=== PATIENT | female | born 1990 | race Two or more races ===

== ENCOUNTER 2025-02-18 17:09 | Emergency (ER) | payer OTHER ==
[~2025-02-18] VITALS: Ht 152.4 cm; Wt 55.0 kg
[2025-02-18] MEDS: LIDOCAINE W/ EPINEPHRINE 1% 20ML VIAL ID ONE (18:44)
[2025-02-18] MEDS: OXYCODONE W/ ACETAMINOPHEN 5/325MG TABLET PO ONE ×2 (18:45→20:29)
--- NOTE | 2025-02-18 18:46 | ED.PDOC ---
HPI Comments 34-YEAR-OLD FEMALE HERE FOR MULTIPLE LAC TO RIGHT SIDE OF FACE S/P DOG BITE BLEEDING CONTROLLED AT THIS TIME PATIENT STATES WAS NOT STRAIGHT DOG SHE NOTES THE DOG LICKED HER FACE 1ST THEN BITTER IN THE RIGHT-SIDED CHEEK. PAIN 8/10 ON PAIN SCALE PRESSURE THROBBING TYPE PAIN. REPORTS NO FACIAL DROOP OR NUMBNESS. PATIENT REQUESTING TETANUS STATES SHE IS IN THE UNKNOWN WHEN SHE RECEIVED HER TETANUS. Chief Complaint: Laceration Time Seen by MD: 18:10 Reviewed Notes: Nurses Notes, Medications, Allergies Allergies: Coded Allergies: Nitrofurantoin (Verified Allergy, Severe, 02/18/25) Home Meds Discontinued Scripts Ibuprofen (Ibuprofen) 800 Mg Tab, 800 MG PO Q8HP PRN for 7 Days, #21 TAB Prov:SHAYE VELASCO RADIOLOGY SERVICES MANAGER 02/18/25 Amoxicillin & Pot Clavulanate (AUGMENTIN TABLET) 875 Mg Tb, 875 MG PO BID for 7 Days, #14 TAB Prov:SHAYE VELASCO RADIOLOGY SERVICES MANAGER 02/18/25 Information Source: Patient Mode of Arrival: Ambulatory Complexity: Complex Laceration Length (cm): 5 Skin Type: Linear, Jagged, Irregular Tendon Injury: 0% Past Medical History PAST MEDICAL HISTORY: Denies Surgical History: Denies all surgeries INSURANCE AGENT History: No Pertinent INSURANCE AGENT History Family History Family History: Reviewed,noncontributory to illness Social History Smoker: Non-Smoker Alcohol: Denies ETOH Use Drugs: Denies Drug Use All Other Systems: Reviewed and Negative (SEE HPI) Physical Exam General Appearance: No Apparent Distress, Normal HEENT: Pharynx Normal Neck: Full Range of Motion, Non-Tender Respiratory: Lungs Clear, No Respiratory Distress, Normal Breath Sounds Cardiovascular: No Murmur, Normal Peripheral Pulses, Regular Rate/Rhythm Breast Exam: Deferred Gastrointestinal: Non Tender, Soft Genitalia: Deferred Pelvic: Deferred Rectal: Deferred Extremities: Normal capillary refill, Normal range of motion Musculoskeletal : Apperance: Normal Neurologic: Alert, No Motor Deficits, Normal Affect, Normal Mood, No Sensory Deficits Cerebellar Function: Normal Reflexes: NOT DONE Skin: Dry, Lacerations (1# 1 IN FULL-THICKNESS LINEAR LACERATION RIGHT SIDE FOREHEAD RIGHT LATERAL TO EYEBROW NO OBVIOUS FOREIGN BODY BLEEDING CONTROLLED 2# 1.5 IN JAGGED LACERATION FULL-THICKNESS NO OBVIOUS FOREIGN BODY BLEEDING CONTR OLLED. 3# 1/2 INCH CIRCULAR LACERATION WITH SKIN TEAR BLEEDING CONTROLLED NO OBVIOUS FOREIGN BODY), Normal Color, Warm Lymphatic: No Adenopathy Was a procedure done? Was a procedure done?: Yes Sedation Sedation?: No Laceration Repair #1: Location RIGHT SIDE FOREHEAD RIGHT LATERAL TO EYEBROW Length 1 INCH Anesthetic: Lidocaine, With epi Laceration Repair Prep: Saline, by Irrigation Laceration Repair Wound Comple: epidermis/dermis repair Laceration Repair: Number of sutures (7), Simple, Nothing Informed consent obtained: Yes Risks, benefits, and alternati: Yes Laceration Repair #2: Location RIGHT TENRIISM INTO CHEEK Length 2 INCHS Anesthetic: Lidocaine, With epi Laceration Repair Prep: Saline, by Irrigation Laceration Repair Wound Comple: layered repair Laceration Repair: Number of sutures (15 AND 2 INTERNAL ABSORBABLE), Simple, Nothing Informed consent obtained: Yes Risks, benefits, and alternati: Yes Laceration Repair #3: Location RIGHT CHEEK Length 1/2 INCH WITH SKIN TEAR Anesthetic: Lidocaine, With epi Laceration Repair Prep: Saline, by Irrigation Laceration Repair Wound Comple: epidermis/dermis repair Laceration Repair: Number of sutures (9) Informed consent obtained: Yes Risks, benefits, and alternati: Yes Notes PATIENT TOLERATED WELL WITH MINIMAL BLOOD LOSS Differential diagnosis Generic Laceration: Retained Foriegn Body, Neurovascular Injury, Tendon Injury, Laceration, Avulsion X-Ray, Labs, Meds, VS Vital Signs Date Time Temp Pulse Resp B/P (MAP) Pulse Ox O2 Delivery O2 Flow Rate FiO2 02/18/25 20:56 98.2 99 19 121/83 (96) 99 98.2 02/18/25 17:11 97.0 121 15 118/89 (99) 98 97.0 02/18/25 17:11 121 15 98 Room Air 02/18/25 17:11 97.0 121 15 118/89 98 97.0 X-Ray, Labs, Meds, VS Comment See procedure note. Pain medication: Percocet 5 mg x 2 with relief Medications: Rocephin 1 g IM, and Tdap Patient requesting discharge at this time. Advised patient to closely monitor for infection due to being a dog bite required wounds to be sutured due to depth, bleeding, and location. Script prophylactic trial of Augmentin and ibuprofen. Advised to take medications as prescribed side effects discussed. Advised close follow up in two days with PCP, urgent care or back here in the ER. ER return precautions given for uncontrolled bleeding and signs and symptoms of infection patient indicates understanding and agrees with discharge plan of care. Time of 1ST Reevaluation: 18:25 Reevaluation 1ST: Unchanged Time of 2ND Reevaluation: 20:40 Reevaluation 2ND: Improved Patient Education/Counseling: Diagnosis, Treatment, Prognosis, Need For Follow Up Family Education/Counseling: Diagnosis, Treatment, Prognosis, Need For Follow Up Departure 1 Departure Time of Disposition: 20:43 Impression: Primary Impression: Dog bite of cheek Qualified Codes: S01.451A - Open bite of right cheek and temporomandibular area, initial encounter; W54.0XXA - Bitten by dog, initial encounter Additional Impression: Facial laceration Qualified Codes: S01.81XA - Laceration without foreign body of other part of head, initial encounter Disposition: 01 HOME / SELF CARE / HOMELESS Condition: Stable Discharged With: Spouse Critical Care Note Critical Care Time?: No Stability Stability form required: SHAYE Rivera Feb 18, 2025 18:46
[2025-02-18] MEDS: IBUPROFEN 600 MG TAB PO ONE (20:29)
[2025-02-18] MEDS: cefTRIAXone SOD 1,000 MG VL IM ONE (20:30)
[2025-02-18] MEDS: TETANUS-DIPTH-ACEL PERTUSSIS 0.5ML SYR Tdap IM ONE (20:31)
[2025-02-18] MEDS ORDERED: AUG875T PO (20:45)
[2025-02-18] MEDS ORDERED: IBUP-1456 PO (20:51)
[2025-02-18 20:56] VITALS: BP 121/83; PULSE 99; RESP 19; TEMP 98.2; O2SAT 99
== END 2025-02-18 20:57 | disposition home or self-care (01) ==
LOC: ER 17:09
DX: S01.81XA Laceration without foreign body of other part of head, initial encounter (principal); S01.451A Open bite of right cheek and temporomandibular area, initial encounter; Z79.899 Other long term (current) drug therapy; W54.0XXA Bitten by dog, initial encounter; Y93.89 Activity, other specified; Y92.89 Other specified places as the place of occurrence of the external cause; Y99.8 Other external cause status; Z88.1 Allergy status to other antibiotic agents
CPT/HCPCS: 12015; 90471; 90715; 96372; 99284; J0696

== ENCOUNTER 2025-03-15 18:28 | Emergency (ER) | payer OTHER ==
[~2025-03-15] VITALS: Ht 154.9 cm; Wt 55.0 kg
[2025-03-15 18:29] VITALS: BP 123/86; PULSE 93; RESP 18; TEMP 99.1; O2SAT 97
--- NOTE | 2025-03-15 18:49 | ED.PDOC ---
History of Present Illness(SKN HPI Comments 35-year-old female who came to ER for suture removal. Suffered a dog bite on her right cheek last February 18. 2 inch laceration on her right cheek, properly sutured. Patient coming in for suture removal Chief Complaint: Suture Removal Time Seen by MD: 18:48 History of Present Illness: Nurses Notes, Medications, Allergies Allergies: Coded Allergies: Nitrofurantoin (Verified Allergy, Severe, 02/18/25) Information Source: Patient Mode of Arrival: Ambulatory Severity: Moderate Timing: Weeks Duration: Since onset Location: Face (Right cheek) Mechanism: Dog Past Medical History PAST MEDICAL HISTORY: Denies Surgical History: Denies all surgeries POSTMASTER History: No Pertinent POSTMASTER History Family History Family History: Reviewed,noncontributory to illness Social History Smoker: Non-Smoker Alcohol: Denies ETOH Use Drugs: Denies Drug Use Lives In: Home Constitutional: denies: chills, diaphoresis, fatigue, fever, malaise, sweats, weakness, others EENTM: denies: blurred vision, double vision, ear bleeding, ear discharge, ear drainage, ear pain, ear ringing, eye pain, eye redness, hearing loss, mouth pain, mouth swelling, nasal discharge, nose bleeding, nose congestion, nose pain, photophobia, tearing, throat pain, throat swelling, voice changes, others Respiratory: denies: cough, hemoptysis, orthopnea, SOB at rest, shortness of breath, SOB with excertion, stridor, wheezing, others Cardiovascular: denies: chest pain, dizzy spells, diaphoresis, Dyspnea on exertion, edema, irregular heart beat, left arm pain, lightheadedness, pal pitations, PND, syncope, others Gastrointestinal: denies: abdomen distended, abdominal pain, blood streaked bowels, constipated, diarrhea, dysphagia, difficulty swallowing, hematemesis, melena, nausea, poor appetite, poor fluid intake, rectal bleeding, rectal pain, vomiting, others Genitourinary: denies: abnormal vagina bleeding, burning, dyspareunia, dysuria, flank pain, frequency, hematuria, incontinence, pain, , vagina discharge, urgency, others Neurological: denies: dizziness, fainting, headache, left sided numbness, left sided weakness, numbness, paresthesia, pre-existing deficit, right sided numbness, right sided weakness, seizure, speech problems, tingling, tremors, weakness, others Musculoskeletal: denies: back pain, gout, joint pain, joint swelling, muscle pain, muscle stiffness, neck pain, others Integumetry: reports: wounds (Suture removal right cheek); denies: bruises, change in color, change in hair/nails, dryness, laceration, lesions, lumps, rash, others Allergic/Immunocompromised: denies: Difficulty Healing, Frequent Infections, Hives, Itching, others Hematologic/Lymphatic: denies: anemia, blood clots, easy bleeding, easy bruising, swollen glands, others Endocrine: denies: excessive hunger, excessive sweating, excessive thirst, excessive urination, flushing, intolerance to cold, intolerance to heat, unexplained weight gain, unexplained weight loss, others Physical Exam General Appearance: No Apparent Distress, Normal HEENT: Normal ENT Inspection, Pharynx Normal, TMs Normal Neck: Full Range of Motion, Non-Tender, Normal, Normal Inspection Respiratory: Chest Non-Tender, Lungs Clear, No Accessory Muscle Use, No Respiratory Distress, Normal Breath Sounds Cardiovascular: No Edema, No JVD, No Murmur, No Gallop, Normal Peripheral Pulses, Regular Rate/Rhythm Breast Exam: Deferred Gastrointestinal: No Organomegaly, Non Tender, No Pulsatile Mass, Normal Bowel Sounds, Soft Genitalia: Deferred Pelvic: Deferred Rectal: Deferred Extremities: No calf tenderness, Normal capillary refill, Normal inspection, Normal range of motion, Non-tender, No pedal edema Musculoskeletal : Apperance: Normal Neurologic: Alert, child development instructor II-XII nml as Tested, No Motor Deficits, Normal Affect, Normal Mood, No Sensory Deficits Cerebellar Function: Normal Reflexes: Normal Skin: Dry, Normal Color, Warm, Wounds (Lacerations to right side of face much noted improvement healing no noted bleeding scabs over multiple absorbable sutures) Lymphatic: No Adenopathy Was a procedure done? Was a procedure done?: Yes Sedation Sedation?: No Informed consent obtained: Yes Other Procedure Procedure Suture removal Indication Removal of absorbable sutures encourage healing Anesthetic None Prep None Success All absorbable sutures removed patient tolerated well no blood loss advised to keep on covered let air dry follow up with plastic surgeon as directed. Return to the ER for uncontrolled bleeding, signs and symptoms of infection or any concerning symptoms patient indicates understanding agrees with discharge plan of care Informed consent obtained: Yes Risks, benefits, and alternati: Yes Differential Diagnosis (INTG) Differential Diagnosis: Cellulitis, Lacerations, Other (Suture removal) X-Ray, Labs, Meds, VS Vital Signs Date Time Temp Pulse Resp B/P (MAP) Pulse Ox O2 Delivery O2 Flow Rate FiO2 03/15/25 18:29 99.1 93 18 123/86 97 99.1 X-Ray, Labs, Meds, VS Comment see procedure note Time of 1ST Reevaluation: 18:46 Reevaluation 1ST: Unchanged Time of 2ND Reevaluation: 19:17 Reevaluation 2ND: Improved Patient Education/Counseling: Diagnosis, Treatment Family Education/Counseling: No Family Present SEPSIS Sepsis Screen Date sepsis recognized/suspect: Mar 15, 2025 Time Sepsis recognized/suspect: 1830 Recent Procedure: No On Antibiotic Therapy: No Respiratory Rate >20: No Heart Rate >90: Yes Temp<36 C (96.8 F) or >38.3 C: No SBP <90 or MAP <65 mmHG: No New Acute Mental Status Change: No Is the patient on CPAP, BIPAP,: No Vital Signs Date Time Temp Pulse Resp B/P (MAP) Pulse Ox O2 Delivery O2 Flow Rate FiO2 03/15/25 18:29 99.1 93 18 123/86 97 99.1 Departure 1 Departure Time of Disposition: 19:17 Impression: Primary Impression: Dog bite of cheek Qualified Codes: S01.451D - Open bite of right cheek and temporomandibular area, subsequent encounter; W54.0XXD - Bitten by dog, subsequent encounter Additional Impression: Encounter for removal of sutures Disposition: 01 HOME / SELF CARE / HOMELESS Condition: Stable Discharged With: Self Critical Care Note Critical Care Time?: No Stability Stability form required: No Heart Score Heart Score: Heart Score Response (Comments) Value History N/A 0 EKG N/A 0 Age N/A 0 Risk Factors N/A 0 Troponin N/A 0 Total 0 I personally scribed for ER ([email or web address]) on 03/15/25 at 18:49. Electronically submitted by Elvin Gonzalez ([email or web address]). ER Mar 15, 2025 18:49 SHAYE VELASCO ELECTRICAL TESTER Mar 15, 2025 19:20
== END 2025-03-15 20:01 | disposition home or self-care (01) ==
LOC: ER 18:30
DX: S01.411D Laceration without foreign body of right cheek and temporomandibular area, subsequent encounter (principal); S01.4 Open wound of cheek and temporomandibular area; Z88.1 Allergy status to other antibiotic agents; Z48.02 Encounter for removal of sutures; W54.0XXD Bitten by dog, subsequent encounter